=== PATIENT | male | born 1950 | race Caucasian/White ===

== ENCOUNTER 2016-12-22 14:07 | Outpatient (CLI) | payer MEDICARE, BC ==
[2016-03-01 08:40] VITALS: O2SAT 98
== END 2016-12-22 14:08 | disposition home or self-care (01) | DRG 554 ==
LOC: CONVCARE 14:07
PROVIDERS: ATTEND Orthopaedic Surgery
DX: M16.11 Unilateral primary osteoarthritis, right hip (principal)
CPT/HCPCS: 73502

== ENCOUNTER 2017-01-05 09:53 | Outpatient (CLI) | payer MEDICARE, BC, MEDICAID ==
[2016-03-01 08:40] VITALS: O2SAT 98
== END 2017-01-05 09:54 | disposition home or self-care (01) | DRG 556 ==
LOC: CONVCARE 09:53
PROVIDERS: ATTEND Orthopaedic Surgery
DX: M25.551 Pain in right hip (principal)

== ENCOUNTER 2017-04-17 07:26 | Observation (INO) | payer MEDICARE, BC, MEDICAID ==
[2017-04-17] MEDS ORDERED: LIDOCAINE HCL 1% MPF SOL ONE (07:31)
[2017-04-17] MEDS ORDERED: PROPOFOL 500 MG/50 ML EMU IV ONE (07:31)
[2017-04-17] MEDS ORDERED: ONDANSETRON HCL 4 MG/2 ML SOL ONE ×3 (09:37→15:19)
[2017-04-17] MEDS ORDERED: METOCLOPRAMIDE HYDROCHLORIDE 5 MG/ML SOL ONE (10:10)
[2017-04-17 11:03] LABS: BASOPHILS % (AUTO) 1 % (0-3); EOSINOPHILS % (AUTO) 1 % (0-9); HEMATOCRIT 45 % (39-53); MEAN CORPUSCULAR HGB CONC 34.4 gm/dl (32.0-36.0); MEAN CORPUSCULAR VOLUME 93 fL (80-100); MONOCYTES % (AUTO) 9.7 % (0-12); NEUTROPHILS % (AUTO) 64.1 % (37-80)
[2017-04-17 11:10] LABS: CALCIUM 8.8 mg/dl (8.5-10.1); POTASSIUM 3.8 mMol/L (3.5-5.1)
[2017-04-17 12:56] LABS: ALBUMIN 3.8 gm/dl (3.4-5.0); BILIRUBIN,DIRECT 0.3 mg/dl (0.0-0.2)
[2017-04-17] MEDS ORDERED: PANTOPRAZOLE SODIUM 40 MG/10 ML PDS ONE (15:19)
[2017-04-17] MEDS ORDERED: PATIENT EDUCATION 1 MISC PRN (15:34)
[2017-04-17] MEDS ORDERED: ONDANSETRON HCL 4 MG/2 ML SOL IV PRN (15:42)
[2017-04-17] MEDS ORDERED: PROCHLORPERAZINE EDISYLATE 5 MG/ML SOL IV PRN (15:42)
[2017-04-17] MEDS ORDERED: PANTOPRAZOLE SODIUM 40 MG/10 ML PDS IV ONE (15:43)
[2017-04-17] MEDS ORDERED: LACTATED RINGERS 1,000 ML IV SCH (15:45)
[2017-04-17] MEDS ORDERED: SODIUM CHLORIDE 0.9% FLUSH 10 ML SOL IV PRN (16:00)
[2017-04-17] MEDS ORDERED: NITROGLYCERIN 0.4 MG TAB SL PRN (17:55)
[2017-04-17] MEDS: HUMULIN N PEN 100 U/ML SC SCH (20:21)
[2017-04-17] MEDS: DEXTROSE/SALINE 0.45/KCL 20MEQ 1,000 ML/1,000 ML SOL IV SCH (20:22)
[2017-04-18 02:47] VITALS: RESP 18; TEMP 98.5; O2SAT 96
[2017-04-18] MEDS: DEXTROSE/SALINE 0.45/KCL 20MEQ 1,000 ML/1,000 ML SOL IV SCH ×2 (03:07→10:05)
[2017-04-18 07:08] LABS: BASOPHILS % (AUTO) 1 % (0-3); EOSINOPHILS % (AUTO) 0 % (0-9); HEMATOCRIT 39 % (39-53); MEAN CORPUSCULAR VOLUME 93 fL (80-100); MONOCYTES % (AUTO) 11.1 % (0-12); NEUTROPHILS % (AUTO) 59.2 % (37-80)
[2017-04-18 07:16] LABS: CALCIUM 8.4 mg/dl (8.5-10.1)
[2017-04-18 07:28] LABS: POTASSIUM 4.7 mMol/L (3.5-5.1)
[2017-04-18] MEDS ORDERED: AMIODARONE 200 MG TAB PO SCH (09:00)
[2017-04-18] MEDS ORDERED: FUROSEMIDE 20 MG TAB PO SCH (09:00)
[2017-04-18] MEDS ORDERED: LISINOPRIL 20 MG TAB PO SCH (09:00)
[2017-04-18] MEDS ORDERED: METOPROLOL SUCCINATE 25 MG TAB.ER.24H PO SCH (09:00)
[2017-04-18 09:02] VITALS: BP 159/77; PULSE 53
[2017-04-18] MEDS: HUMULIN N PEN 100 U/ML SC SCH (09:07)
[2017-04-18] MEDS ORDERED: METOPROLOL SUCCINATE 50 MG TER PO SCH (09:15)
== END 2017-04-18 10:05 | disposition home health service (06) | DRG 951 ==
LOC: SURG 07:26 → ACUTE CARE 15:05
PROVIDERS: ADMIT Family Medicine; ATTEND Internal Medicine Gastroenterology
DX: Z12.11 Encounter for screening for malignant neoplasm of colon (principal); D12.2 Benign neoplasm of ascending colon; K64.8 Other hemorrhoids; D12.8 Benign neoplasm of rectum; K63.5 Polyp of colon; E11.9 Type 2 diabetes mellitus without complications; Z79.4 Long term (current) use of insulin
CPT/HCPCS: 36415; 74177; 80048; 80076; 82150; 82962; 85025; J0780; J2405; J2765; Q9967; J1815; J2001; J2704

== ENCOUNTER 2018-01-23 08:45 | Day surgery (SDC) | payer MEDICARE, BC, MEDICAID ==
[2018-01-23] MEDS ORDERED: BUPIVACAINE HCL 0.25% MPF 10 ML SOL INFIL ONE (09:56)
[2018-01-23] MEDS: DEXAMETHASONE SOD PHOS PF 10 MG/ML SOL IJ ONE ×3 (10:07→10:20)
[2018-01-23 10:39] VITALS: BP 157/73; PULSE 53; RESP 20; TEMP 98.5; O2SAT 97
== END 2018-01-23 10:50 | disposition home or self-care (01) | DRG 552 ==
LOC: SURG 08:45
PROVIDERS: ATTEND Nurse Anesthetist, Certified Registered
DX: M48.061 Spinal stenosis, lumbar region without neurogenic claudication (principal)
CPT/HCPCS: 82962; J1100

== ENCOUNTER 2018-03-02 23:42 | Emergency (ER) | payer MEDICARE, BC, MEDICAID ==
[2018-03-03 00:17] LABS: BASOPHILS % (AUTO) 1 % (0-3); EOSINOPHILS % (AUTO) 1 % (0-9); HEMATOCRIT 37 % (39-53); HEMOGLOBIN 13.6 gm/dl (13.5-17.7); LYMPHOCYTES % (AUTO) 17.4 % (10-50); MEAN CORPUSCULAR HEMOGLOBIN 32.6 pg (27.0-32.0); MEAN CORPUSCULAR HGB CONC 36.6 gm/dl (32.0-36.0); MEAN CORPUSCULAR VOLUME 89 fL (80-100); MONOCYTES % (AUTO) 11.3 % (0-12); NEUTROPHILS % (AUTO) 69.6 % (37-80)
[2018-03-03 00:27] LABS: ALBUMIN 3.4 gm/dl (3.4-5.0); BILIRUBIN,TOTAL 0.3 mg/dl (0.2-1.0); CALCIUM 9.2 mg/dl (8.5-10.1); CARBON DIOXIDE 30.3 mEq/L (21-32); CREATININE 1.29 mg/dl (0.80-1.30); TOTAL PROTEIN 6.6 gm/dl (6.4-8.2)
[2018-03-03] MEDS ORDERED: ONDANSETRON HCL 4 MG/2 ML SOL IV ONE (02:09)
[2018-03-03] MEDS ORDERED: SODIUM CHLORIDE 0.9% FLUSH 10 ML SOL IV PRN (02:09)
[2018-03-03] MEDS ORDERED: KETOROLAC TROMETHAMINE 30 MG/ML SOL IV ONE (02:09)
[2018-03-03] MEDS ORDERED: KETOROLAC TROMETHAMINE 30 MG/ML SOL ONE (02:13)
[2018-03-03] MEDS ORDERED: ONDANSETRON HCL 4 MG/2 ML SOL ONE (02:14)
[2018-03-03 02:49] LABS: APPEARANCE,URINE Clear; BILIRUBIN,URINE NEGATIVE (NEGATIVE); COLOR,URINE Yellow; GLUCOSE, URINE (UA) TRACE (NEGATIVE); KETONES,URINE TRACE (NEGATIVE); LEUKOCYTE ESTERASE ,URINE NEGATIVE (NEGATIVE); NITRATE,URINE NEGATIVE (NEGATIVE); OCCULT BLOOD,URINE 3+ (NEG-TRACE); PH,URINE 5.5; UROBILINOGEN,URINE 0.2 (0.2-1.0 EU)
[2018-03-03] MEDS ORDERED: LIDOCAINE HCL 2% (VISCOUS) 20 ML SOL MT ONE (02:53)
[2018-03-03] MEDS ORDERED: ALUMINUM/MAGNESIUM 30 ML SUS PO ONE (02:53)
[2018-03-03] MEDS ORDERED: ALUMINUM/MAGNESIUM 30 ML SUS ONE (02:55)
[2018-03-03] MEDS ORDERED: LIDOCAINE HCL 2% (VISCOUS) 20 ML SOL ONE (02:56)
[2018-03-03 03:01] VITALS: RESP 16
[2018-03-03 03:21] LABS: EPITHELIAL CELLS 0-1 (SQUAMOUS); RBC,URINE 0-4 (0-3AV/HPF); WBC,URINE 0-1 (0-5AV/HPF)
[2018-03-03 03:22] LABS: BACTERIA 2+ (< 1+); CRYSTALS 1+ (0-3 AVE/HPF)
[2018-03-03] MEDS ORDERED: SODIUM CHLORIDE 0.9% 1000ML 1,000 ML IV ONE (03:37)
[2018-03-03] MEDS ORDERED: TAMSULOSIN HYDROCHLORIDE 0.4 MG CAP ONE (03:41)
[2018-03-03 05:53] VITALS: O2SAT 98
[2018-03-03 05:54] VITALS: BP 170/76; PULSE 53; TEMP 98.3
[2018-03-03] MEDS ORDERED: TAMSULOSIN HYDROCHLORIDE 0.4 MG CAP PO SCH (21:00)
== END 2018-03-03 06:00 | disposition home or self-care (01) | DRG 392 ==
LOC: ED 23:42
DX: R11.0 Nausea (principal); R61 Generalized hyperhidrosis; N23 Unspecified renal colic; E11.9 Type 2 diabetes mellitus without complications; I10 Essential (primary) hypertension; N20.0 Calculus of kidney
CPT/HCPCS: 36415; 74176; 80053; 81001; 85025; 87088; 96365; 96374; 96375; 99284; 99285; J1885; J2405; A9270-GY